=== PATIENT | female | born 1965 | race Caucasian/White ===

== ENCOUNTER → 2020-02-27 11:41 | Outpatient (CLI) | payer MEDICAID, SELFPAY ==
--- NOTE | 2020-02-27 | CA_ITS ---
APPROVED REPORT Exam: Pharmacologic Technologist: Camille Pruitt, Ht: 5 ft 2 in Wt: 215 lbs BSA: 1.97 m2 Indications: Angina Medical History Medical History: HTN, Hyperlipidemia Medications: Omeprazole,,,,, Isosorbide,,,,, Aspirin,,,,, Hydrochlorothiazide,,,,, Atorvastatin,,,,, Carvedilol,,,,, LoraTADINE,,,,, Cardiac Risk Factors: HTN, Hyperlipidemia, FHX of CAD, Smoking Stress Test Details Test: LEXISCAN Reason for pharmacologic stress test: physical limitation. HR Resting HR: 66 bpm Max Heart Rate (APMHR): 166 bpm Max HR Achieved: 110 bpm Target HR (85% APMHR): 141 bpm % of APMHR: 66 BP Resting BP: 121/71 mmHg Max BP: 130/83 mmHg ECG Clinical Exercise duration: 04:00 min Highest Stage Achieved: Exercise capacity: 1.0 METs Stress ECG Conclusion NO cp, positive SOA @ peak infusion resolved in recovery no ectopy les than 1.5mm ST depression Test Summary REST 04:58 . . 66 . 121/ 71 . . Stage 1 . . . . . . . Myoview Injected Stage 1 01:00 . . 103 . . . . Stage 2 01:00 . . 109 . . . . Stage 3 01:00 . . 106 . 130/ 83 . . Stage 4 01:00 . . 96 . 129/ 77 . Stop exercise at 04:00 RECOVERY 01:00 . . 98 . 120/ 69 . . RECOVERY 02:00 . . 103 . 113/ 78 . . RECOVERY 03:00 . . 94 . 128/ 82 . . RECOVERY 03:48 . . 99 . 122/ 77 . . Electronically signed by : Elbert Novak, 02/27/2020 16:44:01
--- NOTE | 2020-02-27 11:42 | NM_ITS ---
APPROVED REPORT Exam: Nuclear Stress Test Indication: HTN, HYPERLIPIDEMIA, TOB USE, FM. HX., SOB, PALPITATIONS, SUNCOPE, FATIGUE Patient Location: Outpatient Stress Tech: Camille Pruitt [place] Tech:Jess Torres STORMYRaghu RT (R)(N)(M) Ht: 5 ft 2 in Wt: 215 lbs Bra Size: 40C HR: 68 bpm BP: 121/71 mmHg BSA: 1.97 m2 BMI: 39.3 History: HTN, HYPERLIPIDEMIA, TOB USE, FM. HX., SOB, PALPITATIONS, SUNCOPE, FATIGUE Procedure: Patient received a 0.4 mg of intravenous Lexiscan, resting heart rate 68 bpm, resting blood pressure 121/71 mmHg, with Lexiscan maximum heart rate achived was 108 bpm which is Less than 85 % of the maximum predicted heart rate and blood pressure was 130/83 mmHg. With Lexiscan, patient denied any complaint of chest pain. Electrocardiogram Resting electrocardiogram showed sinus rhythm, with Lexiscan less than 1.[address] segment depression noted from the baseline EKG. The EKG portion of the Lexiscan Myoview is nondiagnostic. Cardiac Stress and Resting SPECT Images: Cardiac Stress and Resting SPECT images were obtained using technetium 99m Myoview 30.6 mCi stress and 10.20 mCi at rest. Gated SPECT with analysis of segmental wall motion and calculation of the ejection fraction also done. Cardiac stress and resting SPECT images show mild fixed defect in the anterior wall with normal contractility to SPECT is likely secondary to soft tissue attenuation, no reversible ischemia seen. Computer derived ejection fraction is over 65% with no regional wall motion abnormality, right ventricle is normal size and contractility. Conclusion: 1. The EKG portion of the Lexiscan Myoview is nondiagnostic. 2. No scintigraphic evidence of reversible ischemia seen, computer derived ejection fraction is over 65% with no regional wall motion abnormality, right ventricle is normal size and contractility. 3. Likely normal Lexiscan Myoview study. Electronically signed by : Elbert Novak, 02/27/2020 16:46:14
--- NOTE | 2020-02-27 13:09 | CA_ITS ---
APPROVED REPORT EXAM: Comprehensive 2D, Doppler, and color-flow Echocardiogram Intercell Connector Placer: Yvonne Galdamez RVT Ht: 5 ft 2 in Wt: 216lbs BSA: 1.98 BP: 152/90 mmHg Indications: ANGINA,CAD,SMOKER,SOA,FRYE,HLD,HTN 2D Dimensions LVOT 1.99 cm (M/F) 1.5-2.5 M-Mode Dimensions RVDd 2.71 cm (0.9-2.6) LVDd 5.00 cm (3.5-5.7) LVDs 3.14 cm (3.5-5.7) IVSd 0.72 cm (0.6-1.1) PWd 0.76 cm (0.6-1.1) EF (Teich) 66.90% FS 37.20% EDV (Teich) 118.20 mL ESV (Teich) 39.10 mL LV Diastology E/A Ratio 0.54 Mitral Valve MV A Velocity 68.00 (40-130 cm/s) Left Ventricle Left atrium is mildly enlarged, left ventricle is normal size, mild concentric left ventricular hypertrophy, visually estimated ejection fraction 55% with no regional wall motion abnormality. Grade 1 diastolic dysfunction seen without tissue Doppler evidence of raise left atrial pressure. Right Ventricle Right atrium and right ventricular mildly enlarged with normal contractility. Aortic Valve Aortic valve is minimally thickened and fibrosed, there is no aortic stenosis or aortic insufficiency. Mitral Valve Mitral valve is grossly normal, there is mild mitral regurgitation. Tricuspid Valve Tricuspid valve is grossly normal, there is mild tricuspid regurgitation, tricuspid regurgitation jet velocity is inadequate for calculation of the right ventricular systolic pressure. Pulmonic Valve Pulmonic valve is poorly visualized. Great Vessels Aortic root is normal size. Pericardium No significant pericardial effusion noted. Conclusion 1. Mild biatrial enlargement, normal left ventricular size, mild concentric left ventricular hypertrophy, visually estimated ejection fraction 55% with no regional wall motion abnormality, grade 1 diastolic dysfunction seen without tissue Doppler evidence of raise left atrial pressure. 2. Mild in the right ventricle with normal contractility. 3. Mild mitral and tricuspid regurgitation. 4. No significant pericardial effusion noted. Electronically signed by : Elbert Novak, 02/27/2020 14:13:38
== END ==
PROVIDERS: PCP Physician Assistant Medical; Visit Provider Nurse Practitioner Family
DX: I20.9 Angina pectoris, unspecified (principal); E78.2 Mixed hyperlipidemia; I11.9 Hypertensive heart disease without heart failure; I25.10 Atherosclerotic heart disease of native coronary artery without angina pectoris; K44.9 Diaphragmatic hernia without obstruction or gangrene; R06.00 Dyspnea, unspecified; Z72.0 Tobacco use
CPT/HCPCS: 78452; 93017; 93306; A9502; J2785

== ENCOUNTER → 2021-06-14 08:38 | Outpatient (CLI) | payer MEDICAID, SELFPAY ==
--- NOTE | 2021-06-14 08:40 | CA_ITS ---
APPROVED REPORT Livestock Farmworker: HITESH Laterality: Bilateral Indications: dizziness Risk Factors Hypertension: Hyperlipidemia Smoking Doppler Spectral Velocity Analysis ECA (R) 40.00/10.90 cm/s ECA (L) 72.60/17.20 cm/s dICA (R) 71.90/27.30 cm/s dICA (L) 87.90/37.10 cm/s Aliyah (R) 46.60/23.10 cm/s Aliyah (L) 74.10/34.40 cm/s pICA (R) 58.20/28.20 cm/s pICA (L) 63.60/23.90 cm/s dCCA (R) 50.30/19.80 cm/s dCCA (L) 71.80/29.20 cm/s pCCA (R) 47.60/13.90 cm/s pCCA (L) 54.30/17.00 cm/s Vert (R) 28.10/12.30 cm/s Vert (L) 32.20/15.00 cm/s ICA/CCA 1.43 ICA/CCA 1.22 Findings Duplex evaluation demonstrates stenosis of the right proximal internal carotid artery <20%. Duplex evaluation demonstrates stenosis of the left proximal internal carotid artery <20%. Conclusion Duplex evaluation demonstrates stenosis of the right proximal internal carotid artery <20%. Duplex evaluation demonstrates stenosis of the left proximal internal carotid artery <20%. Electronically signed by : Swapnil Stratton MD 06/14/2021 16:21:26
--- NOTE | 2021-06-14 08:40 | US_ITS ---
APPROVED REPORT Exam Type: Ankle to Brachial Index Acute Dialysis Nurse: RT Aretha(R) Indications Claudication: Bilaterally Rest Pain: Current Smoker Risk Factors Hypertension Hyperlipidemia Current Smoker Pressures/Indices Right Indices Left Indices Brachial 113.00 mmHg Brachial 117.00 mmHg Low Thigh 132.00 mmHg 1.13 Low Thigh 119.00 mmHg 1.02 Calf 132.00 mmHg 1.13 Calf 137.00 mmHg 1.17 Ankle(PT) 137.00 mmHg 1.17 Ankle(PT) 142.00 mmHg 1.21 Ankle(DP) 119.00 mmHg 1.02 Ankle(DP) 130.00 mmHg 1.11 Digit 115.00 mmHg 0.98 Digit 112.00 mmHg 0.96 Findings RT DELGADO=1.17 LT DELGADO=1.21 RT TBI=0.98 LT TBI=0.96 Normal pulses Normal waveforms Conclusion RT DELGADO=1.17 LT DELGADO=1.21 RT TBI=0.98 LT TBI=0.96 Normal pulses Normal waveforms Normal appearing resting noninvasive lower extremity arterial study. Electronically signed by : Swapnil Stratton MD 06/14/2021 16:20:54
== END ==
PROVIDERS: PCP Physician Assistant Medical; Visit Provider Physician Assistant
DX: R06.00 Dyspnea, unspecified (principal); R42 Dizziness and giddiness; I25.10 Atherosclerotic heart disease of native coronary artery without angina pectoris; I11.9 Hypertensive heart disease without heart failure; E78.5 Hyperlipidemia, unspecified; Z72.0 Tobacco use
CPT/HCPCS: 93880; 93923

== ENCOUNTER → 2022-01-20 13:05 | Outpatient (CLI) | payer MEDICAID, SELFPAY ==
[2022-01-20 14:51] LABS: Alanine Aminotransferase 30 U/L (12-78); Albumin Level 4.2 g/dl (3.5-5.0); Alkaline Phosphatase 55 U/L (38-126); Aspartate Amino Transferase 25 U/L (14-36); Bilirubin,Direct 0.2 mg/dl (0.0-0.4); Bilirubin,Indirect 0.8 mg/dL (0.0-0.9); Bilirubin,Unconjugated 0.8 mg/dL (0.0-1.1); Chol/HDL Ratio 4.1 (1-3.5); Cholesterol 141 mg/dl (140-200); HDL Cholesterol 34 mg/dl (40-60); Total Protein,Serum 6.6 g/dl (6.3-8.2); Triglycerides 207 mg/dl (30-150); VLDL Cholesterol 41 mg/dL (0-40)
[2022-01-20 15:02] LABS: Direct LDL Cholesterol 71.43 mg/dL (100-129)
== END ==
PROVIDERS: Visit Provider Nurse Practitioner Family
DX: E78.5 Hyperlipidemia, unspecified (principal); I11.9 Hypertensive heart disease without heart failure; E11.9 Type 2 diabetes mellitus without complications
CPT/HCPCS: 36415; 80061; 80076

== ENCOUNTER 2024-05-07 06:07 | Outpatient (CLI) | payer MEDICAID, SELFPAY ==
--- NOTE | 2024-05-07 | CA_ITS ---
APPROVED REPORT Exam: Pharmacologic Technologist: Phuong Camacho, Ht: 5 ft 2 in Wt: 184 lbs BSA: 1.85 m2 HR: 69 bpm BP: 109/82 mmHg Rhythm: NSR Medical History Medical History: Hyperlipidemia, Smoking Medications: Omeprazole,,,,, Hydrochlorothiazide,,,,, Atorvastatin,,,,, Carvedilol,,,,, Montelukast,,,,, Isosorbide Mononitrate ER,,,,, Allergies: PENICILLIN Cardiac Risk Factors: Hyperlipidemia, Smoking Stress Test Details Test: LEXISCAN HR Resting HR: 70 bpm Max Heart Rate (APMHR): 162 bpm Max HR Achieved: 104 bpm Target HR (85% APMHR): 138 bpm % of APMHR: 64 Recovery HR: 94 bpm BP Resting BP: 109/82 mmHg Max BP: 132/90 mmHg Recovery BP: 121.0/83.0 mmHg ECG Resting ECG: NSR Stress ECG: No significant ST changes Arrhythmia: Occasional PVCs Clinical Exercise duration: 04:01 min Highest Stage Achieved: Exercise capacity: 1.0 METs Stress ECG Conclusion PT HAD MILD SOA, CHEST AND HEAD DISCOMFORT PVC NO SIGNIFICANT ST CHANGES UNREMARKABLE LEXISCAN STRESS Test Summary REST 05:15 . . 70 . 109/ 82 . . Stage 1 01:00 . . 80 . . . . Stage 2 01:00 . . 97 . 132/ 90 . . Stage 3 01:00 . . 102 . 122/ 83 . . Stage 4 01:00 . . 96 . 113/ 82 . . Stage 4 01:01 . . 96 . 113/ 82 . Stop exercise at 04:01 RECOVERY 01:00 . . 94 . 113/ 82 . . RECOVERY 02:00 . . 97 . 116/ 88 . . RECOVERY 03:00 . . 92 . 121/ 83 . . RECOVERY 03:17 . . 91 . 121/ 83 . . Electronically signed by : Olga Scott MD 05/07/2024 13:44:03
[2024-05-07] MEDS: SODIUM CHLORIDE 0.9% 10ML SYR (RAD ONLY) 10 ML IV ×2 (06:35→08:10)
[2024-05-07] MEDS: REGADENOSON 0.4MG/5ML SYRINGE 0.4 MG IV (06:35)
--- NOTE | 2024-05-07 07:36 | NM_ITS ---
APPROVED REPORT Exam: Nuclear Stress Test Indication: CAD, HTN, HYPERLIPIDEMIA, TOB USE, FM HX Patient Location: Outpatient Stress Tech: Phuong Camacho [place] Tech:ZHENG Santos RT (R)(N)(M) Ht: 5 ft 2 in Wt: 182 lbs Bra Size: 38B HR: 69 bpm BP: 109/82 mmHg BSA: 1.84 m2 TID: 1.13 BMI: 33.2 History: CAD, HTN, HYPERLIPIDEMIA, TOB USE, FM HX Procedure: Patient received 0.4 mg of intravenous Lexiscan, resting heart rate 69 bpm, resting blood pressure 109/82 mmHg, with Lexiscan maximum heart rate achieved was 101 bpm which is % of the maximum predicted heart rate and blood pressure was 132/90 mmHg. PT HAD MILD C.P. WITH LEXISCAN Cardiac Stress and Resting SPECT Images: Cardiac Stress and Resting SPECT images were obtained using technetium 99m Myoview 31.0 mCi stress and 10.71 mCi at rest. Resting and stress imaging with supine and prone positions demonstrate no evidence of fixed or reversible perfusion defects. Gated imaging demonstrates low-normal global LV systolic function. LVEF is calculated at 50%. Conclusion: No evidence of fixed or reversible perfusion defects. Gated imaging demonstrates low-normal global LV systolic function. LVEF is calculated at 50%. Electronically signed by : Olga Scott MD 05/07/2024 13:45:06
[2024-05-07] MEDS: ISOTOPE MYOVIEW (PER STUDY) 1 DOSE IV (09:52)
== END 2024-05-07 23:59 | disposition home or self-care (01) ==
PROVIDERS: PCP Physician Assistant Medical; Visit Provider Nurse Practitioner
DX: I11.9 Hypertensive heart disease without heart failure (principal); I25.10 Atherosclerotic heart disease of native coronary artery without angina pectoris; R06.00 Dyspnea, unspecified; I38 Endocarditis, valve unspecified; E78.2 Mixed hyperlipidemia; Z72.0 Tobacco use
CPT/HCPCS: 78452; 93017; 93018; A9502; J2785

== ENCOUNTER 2024-05-14 14:26 | Outpatient (CLI) | payer MEDICAID, SELFPAY ==
--- NOTE | 2024-05-14 14:26 | CA_ITS ---
APPROVED REPORT EXAM: Comprehensive 2D, Doppler, and color-flow Echocardiogram Machine Carton Marker: SHANNON Omalley, RVS Ht: 5 ft 2 in Wt: 184lbs BSA: 1.85 BP: 113/79 mmHg Indications: CAD,DYSPNEA,SMOKER,HTN,HLD 2D Dimensions IVSd 0.91 cm F: 0.6-1.0 LVEF (Visual) 68.10 % PWd 0.92 cm F: 0.6 - 1.0 LVEF (Roque's) 47.90 % F: 54 - 74 LVDd 4.96 cm F: 3.9 - 5.3 LV Volume 86.60 mL F: 46 - 106 LVDs 3.07 cm F: 2.2 - 3.5 LV Volume Index 46.8 mL/m2 F: 29 - 61 Aortic Root 3.53 cm F: 2.7 - 3.3 LA Volume 46.60 mL Left Atrium 3.27 cm F: 2.7 - 3.8 LA Volume Index 25.19 mL/m2 (M/F) 16-34 RVID Base (AP4) 2.62 cm (M/F) 2.5-4.1 EF AP4 46.80 % LVOT 2.01 cm (M/F) 1.5-2.5 EF AP2 46.2 % EF BP 47.9 % GL Strain -17.6 % M-Mode Dimensions RVDd 3.07 cm (0.9-2.6) LVDd 4.96 cm (3.5-5.7) Ao Diam 3.20 cm (2.0-3.7) LVDs 2.54 cm (3.5-5.7) IVSd 1.10 cm (0.6-1.1) PWd 0.91 cm (0.6-1.1) EF (Teich) 65.00% EPSs 0.53 cm FS 36.03% EDV (Teich) 66.30 mL TAPSE 1.79 (<1.7) ESV (Teich) 23.20 mL LV Diastology E Decel Time 336 (160-240 msec) E/A Ratio 0.7 MED E' 6.5 (>= 7 cm/sec) MED A' 9.70 cm/s E'/MED E' Ratio 6.71 (<= 14) LAT E' 5.1 (>= 10 cm/sec) LAT A' 8.80 cm/s E/LAT E' Ratio 8.55 (<= 14) Aortic Valve LVOT Max 86.0 (70-110 cm/s) WINIFRED Index 1.55 cm2/m2 LVOT VTI 14.59 cm AoV Peak Harris. 96.0 (50-130 cm/s) AO Mean GR. 1.80 (<5 mmHg) AO VTI 16.2 (18-25 cm) WINIFRED (VTI) 2.86 (2.5-4.5 cm2) Mitral Valve MV E Max Harris. 44.0 (40-130 cm/s) MV A Velocity 63.0 (40-130 cm/s) E/A Ratio 0.70 MV Decel. Time 336 (160-240 ms) MV Mean Gr. 0.70 (<2mmHg) Tricuspid Valve TR P. Velocity 181.00 cm/s RAP Estimate 10.00 mmHg RVSP 23.00 mmHg Left Ventricle The left ventricle is normal size. The left ventricular systolic function is low-normal. Proximal septal thickening is noted. There is normal LV segmental wall motion. Transmitral Doppler flow pattern suggests impaired LV relaxation. LVEF is 50%. Right Ventricle The right ventricle is normal size. The right ventricular systolic function is normal. Atria The left atrium size is normal. The right atrium size is normal. There is no Doppler evidence of interatrial shunt. Aortic Valve The aortic valve opens well. There is no aortic valvular stenosis. No aortic regurgitation is present. Mitral Valve The mitral valve is normal in structure. No evidence of mitral valve stenosis. Mild mitral regurgitation. Tricuspid Valve The tricuspid valve leaflets are thin and pliable. Trace tricuspid regurgitation. There is insufficient TR jet to estimate RVSP. Pulmonic Valve The pulmonary valve is normal in structure. Trace pulmonic regurgitation. Great Vessels The aortic root is normal in size. The ascending aorta is normal in size. IVC is normal in size and collapses >50% with inspiration. Pericardium There is no pericardial effusion. Other Information Study Quality: Fair Conclusion Low-normal LV systolic function (LVEF 50%). Mild MR. Electronically signed by : Olga Scott MD 05/15/2024 00:58:25
== END 2024-05-14 23:59 | disposition home or self-care (01) ==
LOC: RT 14:26
PROVIDERS: PCP Physician Assistant Medical; Visit Provider Nurse Practitioner
DX: I38 Endocarditis, valve unspecified (principal); R06.00 Dyspnea, unspecified; I11.9 Hypertensive heart disease without heart failure; I25.10 Atherosclerotic heart disease of native coronary artery without angina pectoris; E78.2 Mixed hyperlipidemia; Z72.0 Tobacco use
CPT/HCPCS: 93306